=== PATIENT | female | born 1950 | race Caucasian/White ===

== ENCOUNTER 2017-11-29 08:28 | Outpatient (REF) | payer OTHER, SELFPAY ==
[2017-11-29 12:53] LABS: Mean Corp. HGB Concentration 31.8 g/dL (32.0-36.0); Mean Corpuscular Hemoglobin 28.8 pg (27.0-33.0); Mean Corpuscular Volume 90.5 fL (80-95); Mean Platelet Volume 12.3 fL (8.0-11.0); Platelet Count 170 x1000/uL (130-400); RBC 4.86 m/cumm (4.00-5.20); RBC Distribution Width 13.5 % (11.7-14.6); White Blood Cell Count 4.34 k/cumm (4.4-10.8)
[2017-11-29 12:54] LABS: ALT 22 U/L (12-78); AST 14 U/L (15-37); Albumin 3.9 g/dL (3.4-5.0); Alkaline Phosphatase 79 U/L (46-116); Anion Gap 9.4 mmol/L (3-11); BUN 19 mg/dL (7-18); Bilirubin, Total 0.6 mg/dL (0.2-1.0); CO2 29.6 mmol/L (21.0-32.0); CREATININE 1.02 mg/dL (0.55-1.02); Calcium 9.1 mg/dL (8.5-10.1); Chloride 107 mmol/L (98-107); Cholesterol 125 mg/dL (50-200); Estimated GFR 54.05 (mL/min/1.73m2); Glucose 108 mg/dL (70-100); HDL Cholesterol 43 mg/dL (40-60); LDL CHOLESTEROL 64 mg/dL (<100); Potassium 4.1 mmol/L (3.5-5.1); Sodium 146 mmol/L (136-145); Total Protein 6.9 g/dL (6.4-8.2); Triglyceride 99 mg/dL (30-150)
== END 2017-11-29 08:48 ==
LOC: NCHCN 08:28
PROVIDERS: PCP Family Medicine; Visit Provider Family Medicine
DX: E11.9 Type 2 diabetes mellitus without complications (principal); E78.5 Hyperlipidemia, unspecified; I10 Essential (primary) hypertension
CPT/HCPCS: 80053; 80061; 83721; 85027

== ENCOUNTER → 2017-11-29 14:14 | Outpatient (BNVA) | payer OTHER, SELFPAY | PROVIDERS: PCP Family Medicine; Visit Provider Internal Medicine Cardiovascular Disease | DX: I25.810 Atherosclerosis of coronary artery bypass graft(s) without angina pectoris (principal); Z95.2 Presence of prosthetic heart valve; I34.0 Nonrheumatic mitral (valve) insufficiency; I42.9 Cardiomyopathy, unspecified; I10 Essential (primary) hypertension; E78.5 Hyperlipidemia, unspecified; E11.9 Type 2 diabetes mellitus without complications; J44.9 Chronic obstructive pulmonary disease, unspecified; F17.210 Nicotine dependence, cigarettes, uncomplicated | CPT/HCPCS: 99214 ==

== ENCOUNTER → 2018-06-06 13:53 | Outpatient (BNVA) | payer OTHER, MEDICARE, SELFPAY | PROVIDERS: PCP Family Medicine; Visit Provider Internal Medicine Cardiovascular Disease | DX: I25.10 Atherosclerotic heart disease of native coronary artery without angina pectoris (principal); Z95.2 Presence of prosthetic heart valve; I25.5 Ischemic cardiomyopathy; I10 Essential (primary) hypertension; I73.9 Peripheral vascular disease, unspecified; E78.5 Hyperlipidemia, unspecified; E11.9 Type 2 diabetes mellitus without complications; J44.9 Chronic obstructive pulmonary disease, unspecified | CPT/HCPCS: 99214 ==

== ENCOUNTER → 2018-12-23 08:49 | Outpatient (BNVA) | payer OTHER, MEDICARE, SELFPAY | PROVIDERS: PCP Family Medicine; Referring Provider Family Medicine; Visit Provider Internal Medicine Cardiovascular Disease | DX: I34.0 Nonrheumatic mitral (valve) insufficiency (principal); Z95.1 Presence of aortocoronary bypass graft; I10 Essential (primary) hypertension; I42.9 Cardiomyopathy, unspecified; E78.5 Hyperlipidemia, unspecified | CPT/HCPCS: 99204; 99215 ==

== ENCOUNTER 2019-03-06 08:49 | Outpatient (REF) | payer OTHER, SELFPAY ==
[2019-03-06 12:40] LABS: ALT 22 U/L (14-59); AST 19 U/L (15-37); Alkaline Phosphatase 88 U/L (46-116); Anion Gap 7.4 mmol/L (3-11); BUN 29 mg/dL (7-18); Bilirubin, Total 0.5 mg/dL (0.2-1.0); CO2 31.6 mmol/L (21.0-32.0); CREATININE 1.05 mg/dL (0.55-1.02); Calculated LDL 63 mg/dL (<100); Chloride 107 mmol/L (98-107); Cholesterol 138 mg/dL (<200); Estimated GFR 51.96 (mL/min/1.73m2); Glucose 127 mg/dL (74-106); HDL Cholesterol 35 mg/dL (40-60); Potassium 4.2 mmol/L (3.5-5.1); Sodium 146 mmol/L (136-145); Triglyceride 202 mg/dL (<150)
[2019-03-06 13:19] LABS: Hemoglobin A1C 6.5 % (3.8-5.6)
== END 2019-03-06 09:09 ==
LOC: NCHCN 08:49
PROVIDERS: PCP Family Medicine; Visit Provider Family Medicine
DX: E11.9 Type 2 diabetes mellitus without complications (principal); E78.5 Hyperlipidemia, unspecified; I10 Essential (primary) hypertension
CPT/HCPCS: 80053; 80061; 83036

== ENCOUNTER 2019-04-15 00:19 | Outpatient (CLI) | payer OTHER, SELFPAY ==
--- NOTE | 2019-04-15 | DI.MAMMO_ITS ---
EXAM: MG MAMMO SCREENING CLINICAL HISTORY: SCREENING, Z12.39 TECHNIQUE: Bilateral full field digital CC and MLO mammographic images were obtained with 3D tomosyn thesis and utilizing computer aided detection (CAD). COMPARISON: Available for comparison. FINDINGS: Masses/Architectural Distortion: None seen. Microcalcifications: No suspicious pleomorphic-type are seen. Skin Thickening/Nipple Retraction: None. IMPRESSION: 1. No significant interval change with no specific features of malignancy noted. 2. Unless there is more urgent need, screening mammography is recommended, as per [employer] guidelines. BI-RADS Cat 1 - Negative Breast Density - Category C - Heterogeneously dense The mammogram demonstrates the patient's breast tissue is dense. Dense breast tissue is very common a nd is not abnormal but dense breast tissue can make it harder to find cancer on a mammogram. Also, de nse breast tissue may increase their breast cancer risk. This information about the result of the [facility] mogram report was provided to the patient to raise their awareness. Use this report when you speak wi th the patient about their risks for breast cancer, which includes their family history. At that time , you may recommend for more screening tests (Ultrasound or MRI) as they might be useful based on the ir risk. A negative radiographic report should not delay biopsy if a dominant or clinically suspicious mass is present. Up to ten percent of cancers are not identified on mammography. A negative report may reinforce clinical impression. Adenosis and dense breasts may obscure an underlying neoplasm. False positive reports average 6 to 10%. Patient will receive a letter notifying them of these results.
== END 2019-04-15 00:39 ==
PROVIDERS: PCP Family Medicine; Visit Provider Family Medicine
DX: Z12.31 Encounter for screening mammogram for malignant neoplasm of breast (principal)
CPT/HCPCS: 77063; 77067

== ENCOUNTER → 2019-06-23 15:54 | Outpatient (BNVA) | payer OTHER, MEDICARE, SELFPAY | PROVIDERS: PCP Family Medicine; Referring Provider Family Medicine; Visit Provider Internal Medicine Cardiovascular Disease | DX: I34.0 Nonrheumatic mitral (valve) insufficiency (principal); Z95.1 Presence of aortocoronary bypass graft; I10 Essential (primary) hypertension; E78.5 Hyperlipidemia, unspecified; E11.9 Type 2 diabetes mellitus without complications | CPT/HCPCS: 99214; 99442 ==

== ENCOUNTER 2019-09-24 01:36 | Outpatient (CLI) | payer OTHER, SELFPAY ==
--- NOTE | 2019-09-24 07:41 | DI.US_ITS ---
APPROVED REPORT EXAM: Comprehensive 2D, Doppler, and color-flow Echocardiogram Patient Location: Out-Patient [employer] Worker: Lizbeth Colbert RDCS (AE) Indications: Mitral Regurgitation Other Information Study Quality: Adequate Conclusion Left Ventricle : The left ventricle is normal size. Left ventricular systolic function is mild to mod erately decreased. Mild concentric left ventricular hypertrophy. There is global hypokinesis of the l eft ventricle. The left ventricular diastolic function is abnormal. LVEF is 40%. Right Ventricle : Right ventricle is not well visualized. Right ventricular systolic function could n ot be assessed. The RVSP is 27.5 mmHg. Atria : Left atrium is borderline dilated. Right atrium is borderline dilated. Mitral Valve : There is evidence of mitral valve surgical repair. Moderate mitral annular calcificat ion. The mitral valve is calcified and displays decreased opening. Mild mitral stenosis. Trace to mil d mitral regurgitation. Great Vessels : The aortic root is normal in size. The ascending aorta is normal in size. Aortic arch is normal in caliber. IVC is normal in size and collapses >50% with inspiration. Compared to echocardiogram from 05/25/2017: The patient's ejection fraction has decreased from 45 to 4 0%. Wall motion Left Ventricle The left ventricle is normal size. Left ventricular systolic function is mild to moderately decreased . Mild concentric left ventricular hypertrophy. There is global hypokinesis of the left ventricle. Th e left ventricular diastolic function is abnormal. There is no ventricular septal defect visualized. LVEF is 40%. Right Ventricle Right ventricle is not well visualized. Right ventricular systolic function could not be assessed. Th e RVSP is 27.5 mmHg. Atria Left atrium is borderline dilated. Right atrium is borderline dilated. The interatrial septum is inta ct with no evidence for an atrial septal defect. Aortic Valve The Aortic valve is sclerotic. Aortic valve is trileaflet. There is no aortic valvular stenosis. Trac e aortic regurgitation. Mitral Valve Moderate mitral annular calcification. There is evidence of mitral valve surgical repair. The mitral valve is calcified and displays decreased opening. Mild mitral stenosis. Trace to mild mitral regurgi tation. Tricuspid Valve The tricuspid valve is normal in structure. There is no tricuspid valve stenosis. Trace tricuspid reg urgitation. Pulmonic Valve The pulmonary valve is normal in structure. There is no pulmonic valvular stenosis. Trace pulmonic re gurgitation. Great Vessels The aortic root is normal in size. The ascending aorta is normal in size. Aortic arch is normal in ca liber. IVC is normal in size and collapses >50% with inspiration. Pericardium There is no pericardial effusion. 2D Dimensions IVSD d PLAX 1.11 cm F: 0.6-1.0 LV Vol A2C d MOD 126.6 mL LVPW d PLAX 1.13 cm F: 0.6 - 1.0 LV Vol A4C d MOD 143.0 mL LVID d PLAX 4.84 cm F: 3.8 - 5.2 LA vol/ BSA A2C s A-L 34.9 mL/m2 LVDs 3.85 cm F: 2.2 - 3.5 LA vol/ BSA A4C s A-L 34.5 mL/m2 Ao Root d 2.39 cm F: 2.7 - 3.3 LA Vol/ BSA Biplane s A-L 37.5 mL/m2 RA Area A4C 12.88 cm2 LA Area A4C s MOD 20.52 cm2 RA Vol/ BSA A4C s A-L 19.3 mL/m2 LA Area A2C s MOD 19.10 cm2 Ao Asc Diam d 2.55 cm F: 2.3 - 3.1 LV EF A4C MOD 41.0 % LV EF Teichholz 40.0 % LV EF A2C MOD 40.2 % LVEF (Jones's) 38.87 % F: 54 - 74 LV EF Biplane MOD 38.9 % LV Volume 105.83 mL F: 46 - 106 SV 52.26 mL LV Volume Index 60.82 mL/m2 F: 29 - 61 SV Index 30.00 mL/m2 LV Vol Biplane MOD 134.5 mL FS 19.50 % M-Mode TAPSE 1.23 cm (M/F) >1.7 LV Diastology MV E' medial 0.040 (>0.07 m/s) E/A Ratio 1.0 LV E/e MED 31.90 (<14) MV E Vmax 1.27 (0.4-1.3 m/s) MV E' lateral 0.060 (>0.1 m/s) MV A Vmax 1.30 (0.4-1.3 m/s) LV E/e LAT 21.10 (<14) MV E/A Ratio 0.97 MV E/E' medial 31.91 MV E/E' lateral 21.13 E Peak Velocity 1.27 m/s A Peak Velocity 1.30 m/s Aortic Valve LVOT Area 2.92 cm2 AoV Area Vmax 2.15 cm2 LVOT Vmax 1.16 m/s AoV Area/ BSA (Vmax) 1.23 cm2/m2 LVOT Mean Zeb. 0.69 m/s KIEL Mean Zeb. 1.84 cm2 LVOT Peak Grad 5.4 mmHg KIEL Mean Zeb. Index 1.05 cm2/m2 LVOT Mean Grad 2.3 mmHg AR DT 2552 msec LVOT VTI 0.250 m AR PHT 740 msec LVOT Diam s 1.90 cm AoV Vmax 1.57 m/s Velocity Ratio 0.73 AoV Mean Zeb. 1.10 m/s AoV Peak Grad 9.9 mmHg LVOT SV 72.88 mL AoV Mean Grad 5.4 mmHg AoV VTI 0.332 m AoV Area VTI 2.19 cm2 AoV Area/ BSA (VTI) 1.26 cm/m2 Mitral Valve MV DT 433 (160-240 msec) MR Vmax 5.41 m/s MV Vmax TIPS 1.46 m/s MR VTI 2.061 m MV Peak Grad 8.6 mmHg MR Peak Grad 117.1 mmHg MV Mean Grad 4.1 (<2mmHg) MR Mean Grad 80.9 mmHg MV PHT 126 msec MR PISA Radius 0.52 cm MV Area PHT 1.75 cm2 MR EROA 0.11 cm2 MV VTI 0.565 m MR Aliasing Velocity 0.35 m/s MV VTI Annulus 0.548 m MR PISA 1.69 cm2 MV Area VTI 1.29 (4.0-6.0 cm2) Pulmonary Valve PV Vmax 0.93 (0.5-1.5 m/s) RVOT Peak Gr. 1.37 mmHg PV Peak Grad 3.5 mmHg RVOT Mean Gr. 0.70 mmHg PV Mean Grad 1.6 mmHg RVOT VTI 0.142 m PV VTI 0.216 m RVOT Vmax 0.58 m/s Tricuspid Valve TR Peak Grad 24.4 mmHg TR Vmax 2.47 m/s RA Pressure 3.00 mmHg RVSP (TR) 27.5 mmHg
== END 2019-09-24 01:56 ==
PROVIDERS: PCP Family Medicine; Visit Provider Internal Medicine Cardiovascular Disease
DX: I05.2 Rheumatic mitral stenosis with insufficiency (principal)
CPT/HCPCS: 93306

== ENCOUNTER 2019-10-16 02:21 | Outpatient (CLI) | payer OTHER, SELFPAY ==
--- NOTE | 2019-10-16 11:23 | DI.DEXA_ITS ---
EXAM: XR DEXA BONE DENSITY W/WO BARRIE CLINICAL HISTORY: SCREENING FOR OSTEOPOROSIS IN POSTMENOPAUSAL WOMAN,Z78.0 TECHNIQUE: [place] C densitometer COMPARISON: No exams were available for comparison FINDINGS: Lateral stations superintendent view of the thoracic and lumbar spine shows no evidence of compression fractures. The bone mineral density measurements of the lumbar spine correspond to a total T-score of -1.7, in t he osteopenic range. The bone mineral density measurements of the left hip correspond to a total T-score of -0.5 and a fem oral neck T-score of -1.7, in the osteopenic range. The left forearm bone mineral density measurements correspond to a T-score of the distal 3rd of -0.2, in the normal range. IMPRESSION: Osteopenia of the lumbar spine and left hip. Normal bone mineral density of the left forearm.
== END 2019-10-16 02:41 ==
PROVIDERS: PCP Family Medicine; Visit Provider Family Medicine
DX: Z78.0 Asymptomatic menopausal state (principal); M85.89 Other specified disorders of bone density and structure, multiple sites
CPT/HCPCS: 77080

== ENCOUNTER → 2020-02-09 11:28 | Outpatient (BNVA) | payer OTHER, SELFPAY | PROVIDERS: PCP Family Medicine; Referring Provider Family Medicine; Visit Provider Internal Medicine Cardiovascular Disease | DX: I34.0 Nonrheumatic mitral (valve) insufficiency (principal); Z95.1 Presence of aortocoronary bypass graft; I10 Essential (primary) hypertension; E78.5 Hyperlipidemia, unspecified; Z87.891 Personal history of nicotine dependence; Z79.899 Other long term (current) drug therapy | CPT/HCPCS: 99213 ==

== ENCOUNTER 2020-02-26 05:05 | Outpatient (CLI) | payer OTHER, SELFPAY ==
[2020-02-26 09:44] LABS: Anion Gap 5.4 mmol/L (3-11); BUN 36 mg/dL (7-18); CO2 32.6 mmol/L (21.0-32.0); CREATININE 1.33 mg/dL (0.55-1.02); Calcium 9.5 mg/dL (8.5-10.1); Chloride 104 mmol/L (98-107); Estimated GFR 39.44 (mL/min/1.73m2); Glucose 138 mg/dL (74-106); Potassium 4.3 mmol/L (3.5-5.1); Sodium 142 mmol/L (136-145)
== END 2020-02-26 05:25 ==
PROVIDERS: PCP Family Medicine; Visit Provider Internal Medicine Cardiovascular Disease
DX: I35.0 Nonrheumatic aortic (valve) stenosis (principal)
CPT/HCPCS: 36415; 80048

== ENCOUNTER → 2020-07-29 11:04 | Outpatient (CLI) | payer MEDICARE, OTHER, SELFPAY ==
--- NOTE | 2020-07-29 08:15 | DI.US_ITS ---
APPROVED REPORT EXAM: Comprehensive 2D, Doppler, and color-flow Echocardiogram Indications: Mitral Valve Insufficiency, H/O Mitral Valve Replacement, CABG Other Information Study Quality: Adequate Conclusion Mild concentric left ventricular hypertrophy. Estimated ejection fraction is 55%. There are no segm ental wall motion abnormalities The right ventricle is not well visualized The atria are normal in size Aortic valve is trileaflet and mildly sclerotic with trace to mild regurgitation There is a bioprosthetic mitral valve. Mild mitral regurgitation Normal tricuspid valve with trace regurgitation estimated right ventricular systolic pressure is 26 m mHg Normal pulmonic valve with trace regurgitation Wall motion Left Ventricle The left ventricle is normal size. Left ventricular systolic function is borderline. Mild concentric left ventricular hypertrophy. There is no ventricular septal defect visualized. LVEF is 55%. Right Ventricle Right ventricle is not well visualized. Right ventricular systolic function could not be assessed. Th e RVSP is 26.5 mmHg. Atria The left atrium size is normal. The right atrium size is normal. The interatrial septum is intact wit h no evidence for an atrial septal defect. Aortic Valve Mild aortic valve sclerosis. Aortic valve is trileaflet. There is no aortic valvular stenosis. Trace to mild aortic regurgitation. Mitral Valve No evidence of mitral valve stenosis. Trace to mild mitral regurgitation. Porcine mitral valve is pre sent. Tricuspid Valve The tricuspid valve is normal in structure. There is no tricuspid valve stenosis. Trace tricuspid reg urgitation. Pulmonic Valve The pulmonary valve is normal in structure. There is no pulmonic valvular stenosis. Trace pulmonic re gurgitation. Great Vessels The aortic root is normal in size. The ascending aorta is normal in size. Aortic arch is not well vis ualized. IVC is normal in size and collapses >50% with inspiration. Pericardium There is no pericardial effusion. 2D Dimensions IVSD d PLAX 1.20 cm F: 0.6-1.0 LV Vol A2C d MOD 86.3 mL LVPW d PLAX 1.21 cm F: 0.6 - 1.0 LV Vol A4C d MOD 120.4 mL LVID d PLAX 4.80 cm F: 3.8 - 5.2 LA vol/ BSA A2C s A-L 23.2 mL/m2 LVDs 3.65 cm F: 2.2 - 3.5 LA vol/ BSA A4C s A-L 31.8 mL/m2 Ao Root d 2.41 cm F: 2.7 - 3.3 LA Vol/ BSA Biplane s A-L 32.5 mL/m2 RA Area A4C 6.89 cm2 LA Area A4C s MOD 19.97 cm2 RA Vol/ BSA A4C s A-L 7.0 mL/m2 LA Area A2C s MOD 14.24 cm2 Ao Asc Diam d 2.74 cm F: 2.3 - 3.1 LV EF A4C MOD 45.0 % LV EF Teichholz 46.3 % LV EF A2C MOD 45.4 % LVEF (Jones's) 45.12 % F: 54 - 74 LV EF Biplane MOD 45.1 % LV Volume 80.67 mL F: 46 - 106 SV 46.45 mL LV Volume Index 45.83 mL/m2 F: 29 - 61 SV Index 26.34 mL/m2 LV Vol Biplane MOD 102.9 mL FS 23.10 % M-Mode TAPSE 1.28 cm (M/F) >1.7 LV Diastology MV E' medial 0.041 (>0.07 m/s) E/A Ratio 0.9 LV E/e MED 31.70 (<14) MV E Vmax 1.29 (0.4-1.3 m/s) MV E' lateral 0.053 (>0.1 m/s) MV A Vmax 1.45 (0.4-1.3 m/s) LV E/e LAT 24.35 (<14) MV E/A Ratio 0.86 MV E/E' medial 31.70 MV E/E' lateral 24.38 Aortic Valve LVOT Area 2.90 cm2 AoV Area Vmax 1.66 cm2 LVOT Vmax 1.04 m/s AoV Area/ BSA (Vmax) 0.94 cm2/m2 LVOT Mean Zeb. 0.71 m/s KIEL Mean Zeb. 1.75 cm2 LVOT Peak Grad 4.3 mmHg KIEL Mean Zeb. Index 0.99 cm2/m2 LVOT Mean Grad 2.2 mmHg AR DT 2378 msec LVOT VTI 0.231 m AR PHT 690 msec LVOT Diam s 1.90 cm AoV Vmax 1.81 m/s Velocity Ratio 0.57 AoV Mean Zeb. 1.17 m/s AoV Peak Grad 13.1 mmHg LVOT SV 67.01 mL AoV Mean Grad 6.3 mmHg AoV VTI 0.328 m AoV Area VTI 2.04 cm2 AoV Area/ BSA (VTI) 1.16 cm/m2 Mitral Valve MV DT 434 (160-240 msec) MV PHT 126 msec MV Area PHT 1.75 cm2 MV VTI 0.513 m MV Area VTI 1.31 (4.0-6.0 cm2) Pulmonary Valve PV Vmax 0.96 (0.5-1.5 m/s) RVOT Peak Gr. 1.51 mmHg PV Peak Grad 3.7 mmHg RVOT Mean Gr. 0.75 mmHg PV Mean Grad 1.8 mmHg RVOT VTI 0.125 m PV VTI 0.190 m RVOT Vmax 0.62 m/s Tricuspid Valve TR Peak Grad 23.5 mmHg TR Vmax 2.43 m/s RA Pressure 3.00 mmHg RVSP (TR) 26.5 mmHg
== END ==
PROVIDERS: PCP Family Medicine; Visit Provider Internal Medicine Cardiovascular Disease
DX: I34.0 Nonrheumatic mitral (valve) insufficiency (principal); Z95.2 Presence of prosthetic heart valve; Z95.1 Presence of aortocoronary bypass graft
CPT/HCPCS: 93306

== ENCOUNTER → 2020-08-06 09:56 | Outpatient (BNVA) | payer OTHER, SELFPAY | PROVIDERS: PCP Family Medicine; Referring Provider Family Medicine; Visit Provider Internal Medicine Cardiovascular Disease | DX: I34.0 Nonrheumatic mitral (valve) insufficiency (principal); I10 Essential (primary) hypertension; Z95.1 Presence of aortocoronary bypass graft; E78.5 Hyperlipidemia, unspecified | CPT/HCPCS: 99214; 99213 ==

== ENCOUNTER 2020-08-12 03:01 | Outpatient (CLI) | payer OTHER, SELFPAY ==
[2020-08-12 16:12] LABS: Anion Gap 9.9 mmol/L (3-11); BUN 41 mg/dL (7-18); CO2 27.1 mmol/L (21.0-32.0); CREATININE 1.7 mg/dL (0.55-1.02); Calcium 9.2 mg/dL (8.5-10.1); Chloride 106 mmol/L (98-107); Estimated GFR 29.71 (mL/min/1.73m2); Glucose 130 mg/dL (74-106); NT-proBNP 799 pg/mL (<300); Potassium 4.6 mmol/L (3.5-5.1); Sodium 143 mmol/L (136-145)
== END 2020-08-12 03:02 | disposition home or self-care (01) ==
LOC: LBO 03:01
PROVIDERS: PCP Family Medicine; Visit Provider Internal Medicine Cardiovascular Disease
DX: I10 Essential (primary) hypertension (principal); I42.9 Cardiomyopathy, unspecified; E78.5 Hyperlipidemia, unspecified; I50.1 Left ventricular failure, unspecified; Z95.2 Presence of prosthetic heart valve
CPT/HCPCS: 36415; 80048; 83880

== ENCOUNTER 2020-08-12 16:07 | Outpatient (CLI) | payer OTHER, SELFPAY | END 2020-08-12 16:08 | disposition home or self-care (01) | LOC: LBO 16:07 | PROVIDERS: PCP Family Medicine; Visit Provider Internal Medicine Cardiovascular Disease | DX: R69 Illness, unspecified (principal) ==

== ENCOUNTER 2020-09-02 09:30 | Outpatient (REF) | payer OTHER, SELFPAY ==
[2020-09-02 15:19] LABS: HCT 37.6 % (36.0-46.0); HGB 11.7 g/dL (11.2-15.7); MCH 29.5 pg (27.0-33.0); MCHC 31.1 % (32.0-36.0); MCV 94.9 fL (80-95); MPV 11.9 fL (8.0-11.0); Platelet Count 159 10^3/uL (130-400); RBC 3.96 10^6/uL (3.93-5.22); RDW 13.2 % (11.7-14.6); RDW-SD 45.8 fL; WBC 4.15 10^3/uL (4.4-10.8)
[2020-09-02 15:57] LABS: Hemoglobin A1C 6.3 % (<5.7)
[2020-09-02 16:16] LABS: ALT 20 U/L (14-59); AST 13 U/L (15-37); Albumin 4.1 g/dL (3.4-5.0); Alkaline Phosphatase 69 U/L (46-116); Anion Gap 7.3 mmol/L (3-11); BUN 37 mg/dL (7-18); Bilirubin, Total 0.4 mg/dL (0.2-1.0); CO2 30.7 mmol/L (21.0-32.0); CREATININE 1.4 mg/dL (0.55-1.02); Calcium 9.9 mg/dL (8.5-10.1); Calculated LDL 45 mg/dL (<100); Chloride 108 mmol/L (98-107); Cholesterol 141 mg/dL (<200); Estimated GFR 37.18 (mL/min/1.73m2); Glucose 133 mg/dL (74-106); HDL Cholesterol 37 mg/dL (40-60); Potassium 4.9 mmol/L (3.5-5.1); Sodium 146 mmol/L (136-145); Triglyceride 299 mg/dL (<150)
[2020-09-02 16:25] LABS: Vitamin D 25 Total 34.7 ng/mL (30-100)
== END 2020-09-02 09:31 | disposition home or self-care (01) ==
LOC: NCHCN 09:30
PROVIDERS: PCP Family Medicine; Visit Provider Family Medicine
DX: E11.9 Type 2 diabetes mellitus without complications (principal); E78.5 Hyperlipidemia, unspecified; I10 Essential (primary) hypertension; Z79.899 Other long term (current) drug therapy
CPT/HCPCS: 80053; 80061; 82306; 85027; 83036

== ENCOUNTER 2020-09-09 04:40 | Outpatient (CLI) | payer OTHER, SELFPAY ==
[2020-09-09 11:58] LABS: Anion Gap 7.2 mmol/L (3-11); BUN 53 mg/dL (7-18); CO2 30.8 mmol/L (21.0-32.0); CREATININE 1.5 mg/dL (0.55-1.02); Calcium 9.4 mg/dL (8.5-10.1); Chloride 102 mmol/L (98-107); Estimated GFR 34.33 (mL/min/1.73m2); Glucose 235 mg/dL (74-106); Potassium 4.5 mmol/L (3.5-5.1); Sodium 140 mmol/L (136-145)
== END 2020-09-09 04:41 | disposition home or self-care (01) ==
LOC: LBO 04:40
PROVIDERS: PCP Family Medicine; Visit Provider Internal Medicine Cardiovascular Disease
DX: N18.9 Chronic kidney disease, unspecified (principal); I10 Essential (primary) hypertension; E78.5 Hyperlipidemia, unspecified
CPT/HCPCS: 36415; 80048

== ENCOUNTER → 2021-02-07 11:33 | Outpatient (BNVA) | payer MEDICARE, SELFPAY | PROVIDERS: PCP Family Medicine; Referring Provider Family Medicine; Visit Provider Internal Medicine Cardiovascular Disease | DX: I34.0 Nonrheumatic mitral (valve) insufficiency (principal); Z95.1 Presence of aortocoronary bypass graft; I10 Essential (primary) hypertension | CPT/HCPCS: 99213 ==

== ENCOUNTER 2021-10-31 15:14 | Outpatient (REF) | payer MEDICARE, SELFPAY ==
[2021-10-31 19:54] LABS: Hemoglobin A1C 6.5 % (<5.7)
[2021-10-31 20:04] LABS: ALT 26 U/L (14-59); AST 17 U/L (15-37); Albumin 4.5 g/dL (3.4-5.0); Alkaline Phosphatase 70 U/L (46-116); BUN 45 mg/dL (7-18); Bilirubin, Total 0.6 mg/dL (0.2-1.0); CREATININE 1.5 mg/dL (0.55-1.02); Calcium 10.6 mg/dL (8.5-10.1); Calculated LDL 63 mg/dL (<100); Chloride 103 mmol/L (98-107); Cholesterol 152 mg/dL (<200); Estimated GFR 37.03 (mL/min/1.73m2); Glucose 95 mg/dL (74-106); HDL Cholesterol 45 mg/dL (40-60); Potassium 4.7 mmol/L (3.5-5.1); Sodium 141 mmol/L (136-145); Triglyceride 222 mg/dL (<150)
== END 2021-10-31 15:15 | disposition home or self-care (01) ==
LOC: NCHCN 15:14
PROVIDERS: PCP Family Medicine; Visit Provider Family Medicine
DX: E11.9 Type 2 diabetes mellitus without complications (principal); I10 Essential (primary) hypertension; E78.5 Hyperlipidemia, unspecified
CPT/HCPCS: 80053; 80061; 83036

== ENCOUNTER → 2021-11-04 00:45 | Outpatient (CLI) | payer MEDICARE, SELFPAY ==
--- NOTE | 2021-11-04 12:40 | DI.MAMMO_ITS ---
Exam(s) MAMMO SCREENING EXAM: MAMMO SCREENING CLINICAL HISTORY: SCREENING, TECHNIQUE: Mammograms were interpreted according to the usual protocol including computer analysis w Triton CAD system, tomosynthesis and C-view imaging. COMPARISON: FINDINGS: The breasts are heterogeneously dense. No dominant mass or clumped microcalcification is identified in either breast. The current examination is compared with previous examinations including April and there has been no gross interval change in appearance in comparison with the prior studies. IMPRESSION: No specific evidence of malignancy at this time. Routine screening examinations are suggested at yea rly intervals due to the family history of breast carcinoma. BI-RADS Category 1 - Negative Breast Density - Category C - Heterogeneously dense
== END ==
PROVIDERS: PCP Family Medicine; Visit Provider Family Medicine
DX: Z12.31 Encounter for screening mammogram for malignant neoplasm of breast (principal); R92.8 Other abnormal and inconclusive findings on diagnostic imaging of breast
CPT/HCPCS: 77063; 77067

== ENCOUNTER 2021-11-07 08:14 | Outpatient (CLI) | payer MEDICARE, SELFPAY ==
--- NOTE | 2021-11-07 08:00 | RT.EKG_ITS ---
APPROVED REPORT Exam: Resting ECG Reason for Exam: CAD Patient Location: O HR:78 bpm ECG Measurements Heart Rate 78 AXIS MD 126 P 66 QRSd 114 QRS 22 QT 398 T 173 QTc 454 Conclusion Sinus rhythm...normal P axis, V-rate 50- 99 Probable inferior infarct, age indeterminate...Q>35mS, T neg, II III aVF Nondiagnostic ST-T abnormalities
== END 2021-11-07 08:15 | disposition home or self-care (01) ==
LOC: DI.CARD 08:14
PROVIDERS: PCP Family Medicine; Visit Provider Internal Medicine Cardiovascular Disease
DX: I25.10 Atherosclerotic heart disease of native coronary artery without angina pectoris (principal)
CPT/HCPCS: 93010

== ENCOUNTER → 2021-11-07 10:52 | Outpatient (BNVA) | payer MEDICARE, SELFPAY | PROVIDERS: PCP Family Medicine; Visit Provider Internal Medicine Cardiovascular Disease | DX: I25.810 Atherosclerosis of coronary artery bypass graft(s) without angina pectoris (principal); I34.0 Nonrheumatic mitral (valve) insufficiency; I10 Essential (primary) hypertension; Z95.1 Presence of aortocoronary bypass graft | CPT/HCPCS: 93005; 99214 ==

== ENCOUNTER → 2022-11-23 10:43 | Outpatient (BNVA) | payer MEDICARE, SELFPAY | PROVIDERS: PCP Family Medicine; Visit Provider Internal Medicine Cardiovascular Disease | DX: I25.810 Atherosclerosis of coronary artery bypass graft(s) without angina pectoris (principal); I12.9 Hypertensive chronic kidney disease with stage 1 through stage 4 chronic kidney disease, or unspecified chronic kidney disease; N18.9 Chronic kidney disease, unspecified; I34.0 Nonrheumatic mitral (valve) insufficiency | CPT/HCPCS: 99213 ==

== ENCOUNTER → 2023-02-01 14:10 | Outpatient (CLI) | payer MEDICARE, SELFPAY ==
--- NOTE | 2023-02-01 16:01 | DI.US_ITS ---
APPROVED REPORT EXAM: Comprehensive 2D, Doppler, and color-flow Echocardiogram Patient Location: Out-Patient Supervisor [place]: Gold Blanca RDCS (AE) Indications: prior mitral valve repair, mitral valve insufficiency Conclusion 1. Mildly dilated left atrium. Other chambers normal. 2. Hypokinesis of the inferoseptum with borderline LV overall systolic function, EF 50-55%. 3. Stable mitral annuloplasty ring, mild MR.Mild TR. 4. No pericardial effusion. Wall motion Left Ventricle The left ventricle is normal size. The Ejection Fraction is within normal limits. Mild concentric lef t ventricular hypertrophy. There is global hypokinesis of the left ventricle. There is mild to modera te hypokinesis in the mid-inferoseptal wall. There is no ventricular septal defect visualized. LVEF i s 50-55%. Right Ventricle The right ventricle is normal size. Right ventricular systolic function is grossly normal. The RVSP i s 30.4 mmHg. Atria The left atrium is mildly dilated. The right atrium size is normal. The interatrial septum is intact with no evidence for an atrial septal defect. Aortic Valve The Aortic valve is sclerotic. Aortic valve is probably trileaflet. There is no aortic valvular steno sis. Trace aortic regurgitation. Mitral Valve Mitral annuloplasty changes are present. Mild mitral regurgitation. Tricuspid Valve The tricuspid valve is normal in structure. There is no tricuspid valve stenosis. Mild tricuspid regu rgitation. Pulmonic Valve The pulmonary valve is normal in structure. There is no pulmonic valvular stenosis. Trivial pulmonic regurgitation. Great Vessels The aortic root is normal in size. The ascending aorta is normal in size. Aortic arch is normal in ca liber. IVC is normal in size and collapses >50% with inspiration. Pericardium There is no pericardial effusion. 2D Dimensions IVSD d PLAX 1.54 cm F: 0.6-1.0 Ao Root d 2.75 cm F: 2.7 - 3.3 LVPW d PLAX 1.48 cm F: 0.6 - 1.0 Ao Asc Diam d 2.66 cm F: 2.3 - 3.1 LVID d PLAX 4.39 cm F: 3.8 - 5.2 LVDs 3.43 cm F: 2.2 - 3.5 LV EF Teichholz 44.3 % FS 21.77 % LV EDV (Teich) 87.3 mL LV ESV (Teich) 48.6 mL Stroke Vol Index (Teich) 22.08 Auto EF LV EDV A4C 96.8 mL LV EDV A2C 100.2 mL LV EDV BP 92.6 mL LV ESV A4C 55.9 mL LV ESV A2C 59.7 mL LV ESV BP 57.6 mL LVEF(%) A4C 42.3 % LVEF(%) A2C 40.5 % LVEF(%) BP 37.8 % LV SV A4C 40.9 ml LV SV A2C 40.6 ml LV SV BP 35.1 ml LV CO A4C 2.3 L/min LV CO A2C 2.3 L/min LV CO BP 2.3 L/min HR A4C 56.06 BPM HR A2C 56.25 BPM LV EDV Index (BP) LA Volume LA Length A4C 6.0 cm LA Length A2C 4.6 cm LA Area A4C s 15.84 cm2 LA Area A2C s 13.86 cm2 LA Vol A4C A-L 35.42 mL LA Vol A2C A-L 35.08 mL LA Vol Biplane A-L 40.1 mL LA Vol/BSA A4C A-L LA Vol/BSA A2C A-L LA Vol/BSA BP A-L 22.9 mL/m2 LA Vol A4C MOD 36.8 mL LA Vol A2C MOD 32.9 mL LA Vol BP MOD 38.0 mL RA Volume RA Area A4C 8.3 cm2 RA ESV A4C (A-L) 13.3mL RA Vol/BSA A4C A-L RA Length A4C 4.4 cm RA ESV A4C (MOD) 14.3mL LV Diastology MV E' medial 0.046 (>0.07 m/s) MV E Vmax 1.37 (0.4-1.3 m/s) MV E/E' MED 29.80 (<14) MV A Vmax 1.20 (0.4-1.3 m/s) MV E' lateral 0.053 (>0.1 m/s) E/A Ratio 1.1 MV E/E' LAT 25.71 (<14) MV E' Average 0.050 m/s MV E/E'(average) 27.60 Aortic Valve AoV Vmax 2.05 m/s LVOT Vmax 1.37 m/s AoV Peak Grad 37.0 mmHg LVOT Peak Grad 7.5 mmHg AoV Area (Vmax) 1.80 cm2 LVOT VTI 0.308 m AoV VTI 0.459 m LVOT Mean Grad 4.1 mmHg AoV Mean Zeb. 1.59 m/s LVOT SV 83.54 mL AoV Mean Grad 10.8 mmHg LVOT Diam s 1.85 cm AoV Area (VTI) 1.82 cm2 AV Regurg Peak Gr. 57.05 mmHg Velocity Ratio 0.67 AR Decel Bolivar 2.0m/sec2 AR DT 1902 msec AR PHT 552 msec AR Vmax 3.78 m/s Mitral Valve MV DT 360 (160-240 msec) MR Vmax 4.31 m/s MV Vmax TIPS 1.37 m/s MR VTI 1.550 m MV Mean Grad 3.2 (<2mmHg) MR Peak Grad 74.3 mmHg MV VTI 0.598 m MR Mean Grad 55.2 mmHg MR PISA Radius 0.48 cm MR Aliasing Velocity 0.30 m/s Pulmonary Valve PV Vmax 1.07 (0.5-1.5 m/s) RVOT Vmax 0.57 m/s PV Peak Grad 4.6 mmHg RVOT Peak Gr. 1.3 mmHg PV Mean Zeb 0.67 m/s RVOT VTI 0.138 m PV Mean Grad 2.1 mmHg RVOT Mean Gr. 0.7 mmHg Tricuspid Valve RA Pressure 3.00 mmHg TR Vmax 2.62 m/s TR Peak Grad 27.4 mmHg RVSP (TR) 30.4 mmHg
== END ==
PROVIDERS: PCP Family Medicine; Visit Provider Internal Medicine Cardiovascular Disease
DX: I34.0 Nonrheumatic mitral (valve) insufficiency (principal)
CPT/HCPCS: 93306

== ENCOUNTER 2023-11-22 08:01 | Outpatient (CLI) | payer MEDICARE, SELFPAY ==
--- NOTE | 2023-11-22 08:00 | RT.EKG_ITS ---
APPROVED REPORT Exam: Resting ECG Reason for Exam: CAD Patient Location: O HR:67 bpm ECG Measurements Heart Rate 67 AXIS MA 142 P 24 QRSd 105 QRS 19 QT 414 T 187 QTc 437 Conclusion Sinus rhythm...normal P axis, V-rate 50- 99 Inferior infarct, old...Q >35mS, II III aVF Lateral leads are also involved...lat Q or ST-T abnormalities Baseline wander in lead(s) V2
== END 2023-11-22 08:02 | disposition home or self-care (01) ==
LOC: DI.CARD 08:02
PROVIDERS: PCP Family Medicine; Visit Provider Internal Medicine Cardiovascular Disease
DX: I25.810 Atherosclerosis of coronary artery bypass graft(s) without angina pectoris (principal)
CPT/HCPCS: 93010

== ENCOUNTER → 2023-11-22 10:00 | Outpatient (BNVA) | payer MEDICARE, SELFPAY | PROVIDERS: PCP Nurse Practitioner Family; Referring Provider Nurse Practitioner Family; Visit Provider Internal Medicine Cardiovascular Disease | DX: I25.810 Atherosclerosis of coronary artery bypass graft(s) without angina pectoris (principal); I34.0 Nonrheumatic mitral (valve) insufficiency | CPT/HCPCS: 93005; 99213 ==

== ENCOUNTER → 2024-01-17 12:57 | Outpatient (BNVA) | payer MEDICARE, SELFPAY | PROVIDERS: PCP Nurse Practitioner Family; Referring Provider Nurse Practitioner Family; Visit Provider Physical Therapy Assistant | DX: Z12.11 Encounter for screening for malignant neoplasm of colon (principal); E11.9 Type 2 diabetes mellitus without complications; I25.10 Atherosclerotic heart disease of native coronary artery without angina pectoris ==

== ENCOUNTER 2024-01-28 08:21 | Day surgery (SDC) | payer MEDICARE, SELFPAY ==
--- NOTE | 2024-01-27 16:30 | W.PM.DSUDISC ---
Date of service: 01/28/24 Discharge Plan Disposition Patient Disposition: Home Condition: Good Discharge Details Reason For Visit: screening colonoscopy Attending Provider: Erwin Simons Primary Care Provider: Allyn Jaeger Home Meds and New Rx's Prescriptions: Continued atorvastatin 80 MG tablet 80 mg PO DAILY aspirin [Aspir-81] 81 MG tablet,delayed release (DR/EC) 81 mg PO DAILY [id number] fum-folic ac 7.5 mg iron-400 mcg tablet 1 tab PO DAILY spironolactone 25 mg tablet 12.5 mg PO DAILY Qty: 90 3RF metoprolol succinate 25 mg tablet extended release 24 hr See Rx Instructions .ROUTE .COMPLEX Qty: 90 3RF Dose Instruction: TAKE 1 TABLET BY MOUTH DAILY Rx Instructions: TAKE 1 TABLET BY MOUTH DAILY hydrochlorothiazide 25 mg tablet See Rx Instructions .ROUTE .COMPLEX Qty: 90 3RF Dose Instruction: TAKE 1 TABLET BY MOUTH DAILY Rx Instructions: TAKE 1 TABLET BY MOUTH DAILY lisinopril 20 mg tablet See Rx Instructions .ROUTE .COMPLEX Qty: 90 3RF Dose Instruction: TAKE 1 TABLET BY MOUTH DAILY Rx Instructions: TAKE 1 TABLET BY MOUTH DAILY Discontinued bisacodyl [Dulcolax (bisacodyl)] 5 mg tablet,delayed release (DR/EC) 5 mg PO ONCE Qty: 4 0RF Rx Instructions: Take per colonoscopy instructions provided by ordering providers office polyethylene glycol 3350 17 gram/dose powder 17 g PO ONCE Qty: 238 0RF Rx Instructions: Take per colonoscopy instructions provided by ordering providers office Discharge Instructions Instructions: Colon polyps, Diverticulosis Additional Instructions: Surely, was pleasure meeting you today, and I hope you are comfortable throughout the colonoscopy. Everything went very smoothly. Your prep was excellent. You have diverticulosis. This occurs when the muscular part of the colon wall weakens as we age, causing the inside lining to pooch or pocket outwards through the muscular portion. These can get infected or inflamed during episodes that we refer to as diverticulitis. Often times, however, patients are not even bothered by them. Maintaining a diet that is rich in fiber, staying well-hydrated, and avoiding constipation through the basic ways to take care of it. Have attached a little bit of information here about diverticulosis. He did also have a polyp in your rectum. I removed this today. It was medium in size, and I will send it off to the pathologist for their review. Polyps, different varieties, and we use that information to help decide timing of future colonoscopies. Those results usually take a week or 2, once all the office has the information together, we will be in touch. If you need anything in the meantime, please do not hesitate to ask. 1. If tolerated, consume a soft, low fiber diet for 1-2 days. 2[address] Do not drive, drink alcohol, operate machinery, make critical decisions, or do activities that require coordination or balance for 24 hours. 3. Because air was put into your colon during the procedure, expelling air from your rectum (passing gas or farting) is normal. 4. You may not have a bowel movement for 1-3 days because of the colonoscopy prep. This is normal. 5. Go directly to the emergency room if you notice any of the following: Develop chills (warm to touch), or if you have a thermometer and your temperature is above 101 Difficulty breathing or difficultly swallowing Persistent vomiting Severe abdominal pain, other than gas cramps Severe chest pain Black, tarry stools Any bleeding ? exceeding one tablespoon 6. Call your physician if the site where your intravenous was started becomes red, swollen, painful, and warm to touch. 7. Your physician has reviewed your pre-procedure medications. Please continue to take those medications as previously ordered. You will be given specific information/education regarding any changes to your medications before leaving. Activity:: Activity as Tolerated Diet:: As Tolerated Discharge Orders Discharge Orders: Discharge Order (Routine); Ordered 01/27/24 Ordered By: Erwin Simons DS: Diagnosis Discharge Diagnosis (1) Encounter for screening colonoscopy: Status: Acute Asessment and Plan: Follow-up on polypectomy results
--- NOTE | 2024-01-27 16:31 | W.COLOREPORT ---
Date of service: 01/28/24 Time of Service: 09:54 Colonoscopy Report Date of procedure: 01/28/24 Pre-op diagnosis general: screening colonscopy Post-op diagnosis procedure note: other (Hemorrhoids, diverticulosis, rectal polyp) Procedure: colonoscopy with polypectomy Surgeon: Erwin Simons Anesthesia Type: General:No Airway Estimated blood loss (mL): 5 Pathology: other (0.5 cm pedunculated rectal polyp) Complications: None Disposition: same day Indications: Jessica is a 74 year old woman who is getting her first screening colonscopy Prep: Miralax/Dulcolax Procedure Start Time: 09:33 Procedure End Time: 09:46 Retraction Time: 7 Findings: Internal and external hemorrhoids, diverticulosis, rectal polyp Procedure Description: After the induction of anesthesia, and with the patient in left lateral decubitus position, I began by performing an external anorectal exam.? Perineum and skin were normal, as was the anal verge.? There are some nonthrombosed external hemorrhoids.? Next, I performed a digital rectal exam.? This felt normal.? Next, I advanced a colonoscope into the rectal vault.? I performed retroflexion.? There are some internal hemorrhoids as well.? Using insufflation, I then advanced the colonoscope beyond the rectal folds and into the sigmoid colon before advancing towards the cecum.? There is extensive diverticulosis that extends into the transverse colon.? Great care was taken to advance the camera gently, maintain the true lumen at all times the scope was noted to be in the cecum by identification of the ileocecal valve and appendiceal orifice.? I then began withdrawing the colonoscope using repeated irrigation as necessary for full evaluation of the colonic mucosa. ?Once the scope was withdrawn to the level of the rectum, great care was taken to examine portions of the rectal folds.? In the lower portion of the rectal vault was a 0.5 cm pedunculated polyp. Narrowband imaging was used to assist with the analysis. There were a few other subcentimeter flat polyps that appeared consistent with hyperplastic polyps. The larger pedunculated polyp was removed with cold forceps without any difficulty. There is minimal bleeding finally, the scope was withdrawn and the patient was brought to the same-day surgery recovery unit as the anesthetic wore off. ?The findings and instructions were shared with the patient prior to discharge. [place] Bowel Prep [place] Bowel Prep Right Colon: 3 Left Colon: 3 Transverse Colon: 3 Total Score: 9
[2024-01-28 08:58] VITALS: BP 128/72; PULSE 69; RESP 16; TEMP 36.3; O2SAT 94
--- NOTE | 2024-01-28 09:13 | W.ANESPRE ---
General Info Date of Service Date Performed: 01/28/24 Height: 5 ft 11 in Weight: 74.3 kg Body Mass Index (BMI): 22.8 Surgical Procedure: Operation Date: 01/28/24 09:50 Proposed Procedure Side Surgeon leatha Simons MD Meds Allergies and Home Medications Allergies Allergy/AdvReac Type Severity Reaction Status Date / Time No Known Allergies Allergy Verified 01/28/24 08:43 Home Medication ?Medication ?Instructions ?Recorded aspirin 81 mg tablet,delayed 81 mg PO DAILY 09/12/16 release (Aspir-) atorvastatin 80 mg tablet 80 mg PO DAILY 09/12/16 mouapgnpqrjp-lckscpkq-uhyr 1 tab PO DAILY 12/23/18 fumarate 7.5 mg-folic acid 400 mcg tablet spironolactone 25 mg tablet 12.5 mg (1/2 x 25 mg) PO DAILY #90 04/17/23 tabs metoprolol succinate 25 mg See Rx Instructions .Route 05/29/23 tablet,extended release 24 hr .COMPLEX #90 tabs hydrochlorothiazide 25 mg tablet See Rx Instructions .Route 07/03/23 .COMPLEX #90 tabs lisinopril 20 mg tablet See Rx Instructions .Route 07/03/23 .COMPLEX #90 tabs Current Visit Medications: Current Medications Generic Name Dose Route Start Last Admin Trade Name Freq PRN Reason Stop Dose Admin Ringer's Solution 1,000 mls @ 80 mls/hr 01/28/24 08:30 IV 02/27/24 08:29 INFUSION FAVIO IV Miscellaneous Supplies 1 each 01/28/24 06:00 Iv Access IV 01/28/24 23:59 DIRECTED [facility] Ondansetron HCl 4 mg 01/27/24 16:32 Ondansetron 4 Mg/2 Ml Vial IVP 02/26/24 16:31 Q4H PRN PRN Nausea / Vomiting Sodium Chloride 0 ml 01/28/24 06:00 Normal Saline Flush 10 Ml Syr IV 01/28/24 23:59 PRN PRN Sodium Chloride 0 ml 01/28/24 06:00 Normal Saline 10 Ml Vial IJ 01/28/24 23:59 DIRECTED PRN Sterile Water 0 ml 01/28/24 06:00 Water,Injection,Sterile 10 Ml Vial IJ 01/28/24 23:59 DIRECTED PRN PFSH Active Problems Active Problems: Problem Status Onset Code Encounter for screening colonoscopy Acute Z12.11 CAD (coronary artery disease) Chronic I25.10 CKD (chronic kidney disease) Chronic N18.9 Pulmonary emphysema Acute 09/08/16 J43.9 Medical History Medical History CVA (cerebral vascular accident) Diabetes mellitus Status post myocardial infarction Surgical History Surgical History H/O mitral valve replacement 2017 History of coronary artery bypass graft x 3 (~2021) History of bilateral cataract extraction (~2022) History of carotid endarterectomy (~2021) Tobacco Smoking/Tobacco Use Status: Former Tobacco Use Alcohol Alcohol Intake: never Substance Use Substance use: Never Substance use type: does not use Vital Signs and Lab Results Vital Signs Most Recent Vital Signs in EMR: Most Recent Vital Signs Temp Pulse Resp BP Pulse Ox 36.3 C L 69 16 128/72 94 01/28/24 08:58 01/28/24 08:58 01/28/24 08:58 01/28/24 08:58 01/28/24 08:58 Lab Results Blood Type / Crossmatch: No Data to Display Complete Blood Count: No Data to Display Complete Metabolic Panel: No Data to Display Liver Function Panel: No Data to Display Coagulation Panel: No Data to Display Cardiac Panel: No Data to Display Arterial Blood Gas: No Data to Display Venous Blood Gas: No Data to Display Pancreas Panel: No Data to Display Thyroid Panel: No Data to Display Infectious Disease: No Data to Display Blood Cultures: No Data to Display Toxicology Panel: No Data to Display Imaging and Studies Imaging and Studies Study information below may be from another EMR and interpreted by another provider. Please see original notes in EMR for more complete details. EKG Summary: Conclusion Sinus rhythm...normal P axis, V-rate 50- 99 Inferior infarct, old...Q >35mS, II III aVF Lateral leads are also involved...lat Q or ST-T abnormalities Baseline wander in lead(s) V2 Echocardiogram Summary: Admission Date: 02/01/23 : 1950 Age: 73 APPROVED REPORT EXAM: Comprehensive 2D, Doppler, and color-flow Echocardiogram Patient Location: Out-Patient Photoresist Printer: Gold Blanca RDCS (AE) Indications: prior mitral valve repair, mitral valve insufficiency Conclusion 1. Mildly dilated left atrium. Other chambers normal. 2. Hypokinesis of the inferoseptum with borderline LV overall systolic function, EF 50-55%. 3. Stable mitral annuloplasty ring, mild MR.Mild TR. 4. No pericardial effusion. Anesthesia Assessment and Plan Anesthesia History Personal History: No History of Anesthesia Complications Family History: No Family History of Anesthesia Complications Exercise Tolerance Exercise Tolerance: Metabolic Equivalents>4 Pertinent Negatives Pertinent Negatives: No Symptoms of GERD Cardiac & Pulmonary Exam Cardiac Exam: Normal S1/S2 Heart Sounds Pulmonary Exam: Clear Bilateral Breath Sounds Implantable Cardiac Device Does patient have a Pacemaker or an ICD?: No Airway Exam Known Difficult Airway: No Mallampati Class: 2 Mouth Opening: Normal (> 3cm) Thyromental Distance: Less than 3 cm Neck Range of Motion: Full ROM Neck Circumference: Thick Teeth Condition: Edentulous ASA Classification ASA Score: ASA 3 Emergency Case?: No NPO Status NPO Status: NPO Clears >2 hours, Solids >8 hours Anesthesia Plan Resuscitation Status: Full Code Anesthesia Technique: General Anesthesia Airway Planned: Natural Airway Monitors Used: Standard Monitors
[2024-01-28 09:16] VITALS: BMI 22.8
[2024-01-28] MEDS: Lactated Ringers 1,000 ML 80 ML IV (09:20)
--- NOTE | 2024-01-28 09:45 | BOWEL_PTH ---
PATIENT: Jessica Armas LOC: [facility] U#:[id number] AGE/SX: 74/F ROOM: RE01/28/[address]: Erwin Simons MD : 1950 BED: DIS: 01/28/2024 SPEC #: [id number] RECD: 01/28/24 12:56 STATUS: KAUSHAL REQ #: [id number] MARIELA: 01/28/24 09:[address]: Erwin Simons DEPT: Surgical Specimen RECD BY: Jayshree Rai ENTERED: 01/28/24 12:59 SP TYPE: Bowel OTHR DR: Allyn Jaeger Tissues: 1 - BIOPSY BOWEL Procedures: GROSS AND MICRO LEVEL 4 Comments: [id number]
[2024-01-28 09:51] VITALS: BP 82/55; PULSE 54; RESP 16; TEMP 35.9; O2SAT 96
[2024-01-28 10:17] VITALS: BP 130/70; PULSE 52; RESP 16; TEMP 36.3; O2SAT 100
--- NOTE | 2024-01-28 11:59 | W.ANESPOSTOP ---
Postoperative Evaluation Date, Time and Location Date Performed: 01/28/24 Time Performed: 09:54 Patient Location: Day Surgery Unit Vital Signs Most Recent Imported Vital Signs: Most Recent Vital Signs Temp Pulse Resp BP Pulse Ox 36.3 C L 52 L 16 130/70 100 01/28/24 10:17 01/28/24 10:17 01/28/24 10:17 01/28/24 10:17 01/28/24 10:17 Pain Score Most Recent Pain Score: Most Recent Pain Score Pain Level 0 01/28/24 10:17 Assessment Mental Status: Awake (Alert & Oriented to Patient Baseline) Airway and Respiratory Function: Patent airway with normal (patient baseline) respiratory exam Cardiovascular Function: Hemodynamically Stable Hydration Status: Adequately Hydrated Nausea & Vomiting: No Nausea or Vomiting Pain: Pt. Denies Any Pain Peripheral Nerve Block: Patient did not receive a nerve block
== END 2024-01-28 10:40 | disposition home or self-care (01) ==
LOC: SUR 08:21
PROVIDERS: PCP Nurse Practitioner Family; Visit Provider Surgery
PROC: 0DJD8ZZ Inspection of Lower Intestinal Tract, Via Natural or Artificial Opening Endoscopic (ICD-10-PCS; CPT 45378; principal; 2024-01-28 09:45)
DX: Z12.11 Encounter for screening for malignant neoplasm of colon (principal); D12.8 Benign neoplasm of rectum; K57.30 Diverticulosis of large intestine without perforation or abscess without bleeding; K64.8 Other hemorrhoids
CPT/HCPCS: 45380; 88305; J2704

== ENCOUNTER 2024-06-25 15:11 | Outpatient (CLI) | payer MEDICARE, SELFPAY ==
[2024-06-25 15:24] LABS: Abs Immature Grans 0.01 10^3/uL (0.0-0.06); Absolute Basophil Count 0.02 10^3/uL (0.0-0.2); Absolute Eosinophil Count 0.05 10^3/uL (0.0-0.7); Absolute Lymphocyte Count 0.75 10^3/uL (1.2-3.4); Absolute Monocyte Count 0.38 10^3/uL (0.1-0.8); Absolute Neutrophil Count 3.15 10^3/uL (1.2-6.7); Basophils % 0.5 %; Eosinophils % 1.1 %; HCT 41.6 % (36.0-46.0); HGB 13.4 g/dL (11.2-15.7); Immature Grans % 0.2 %; Lymphocytes % 17.2 %; MCH 29.9 pg (27.0-33.0); MCHC 32.2 % (32.0-36.0); MCV 93 fL (80-95); MPV 10.3 fL (8.0-11.0); Monocytes % 8.7 %; Neutrophils % 72.3 %; Platelet Count 141 10^3/uL (130-400); RBC 4.48 10^6/uL (3.93-5.22); RDW 13.1 % (11.7-14.6); RDW-SD 44.4 fL; WBC 4.36 10^3/uL (4.4-10.8)
[2024-06-25 16:23] LABS: ALT 25 U/L (14-59); AST 14 U/L (15-37); Albumin 4.4 g/dL (3.4-5.0); Alkaline Phosphatase 81 U/L (46-116); Anion Gap 7.9 mmol/L (3-11); BUN 30 mg/dL (7-18); CO2 30.1 mmol/L (21.0-32.0); CREATININE 1.2 mg/dL (0.55-1.02); Calcium 10.7 mg/dL (8.5-10.1); Chloride 105 mmol/L (98-107); Glucose 85 mg/dL (74-106); Potassium 4.4 mmol/L (3.5-5.1); Sodium 143 mmol/L (136-145); Total Protein 7.3 g/dL (6.4-8.2)
== END 2024-06-25 15:12 | disposition home or self-care (01) ==
LOC: LBO 15:11
PROVIDERS: PCP Nurse Practitioner Family; Visit Provider Nurse Practitioner Family
DX: Z00.00 Encounter for general adult medical examination without abnormal findings (principal)
CPT/HCPCS: 36415; 80053; 85025

== ENCOUNTER 2024-08-04 01:16 | Outpatient (CLI) | payer MEDICARE, SELFPAY ==
--- NOTE | 2024-08-04 | DI.MAMMO_ITS ---
Exam(s) MAMMO SCREENING EXAM: MAMMO SCREENING CLINICAL HISTORY: Screening Z12.31 TECHNIQUE: Mammograms were interpreted according to the usual protocol including computer analysis with CAD system, tomosynthesis and C-view imaging. COMPARISON: 2016 through 2021 FINDINGS: The breasts are composed of heterogeneously dense fibroglandular densities, Breast Density category C. No suspicious masses or suspicious microcalcifications are seen. No skin thickening or abnormal axillary lymph nodes are seen. There has been no significant change from prior exams. IMPRESSION: BI-RADS Category 1, Negative mammogram. Yearly screening mammography is recommended. Breast Density: Category C - The breasts are heterogeneously dense, which may obscure small masses. Breast density Category C or D implies that the patient has dense breast tissue. Dense breast tissue can make it harder to find cancer on a mammogram. Dense breast tissue is also associated with an increased risk of breast cancer. This information about the result of the mammogram report was provided to the patient to raise their awareness. Use this report when you speak with the patient about their risks for breast cancer, which includes their family history. At that time, you may recommend additional screening tests (Ultrasound or MRI) as these tests may add significant information. A negative radiographic report should not delay biopsy if a dominant or clinically suspicious mass is present. Up to ten percent of cancers are not identified on mammography. A negative report may reinforce clinical impression. Adenosis and dense breasts may obscure an underlying neoplasm. False positive reports average 6 to 10%.
== END 2024-08-04 01:36 ==
LOC: DI 01:16
PROVIDERS: PCP Nurse Practitioner Family; Visit Provider Nurse Practitioner Family
DX: Z12.31 Encounter for screening mammogram for malignant neoplasm of breast (principal); R92.333 Mammographic heterogeneous density, bilateral breasts
CPT/HCPCS: 77063; 77067

== ENCOUNTER → 2024-11-20 09:44 | Outpatient (BNVA) | payer MEDICARE, SELFPAY | PROVIDERS: PCP Nurse Practitioner Family; Visit Provider Internal Medicine Cardiovascular Disease | DX: I25.810 Atherosclerosis of coronary artery bypass graft(s) without angina pectoris (principal); Z98.890 Other specified postprocedural states | CPT/HCPCS: 99213 ==